=== PATIENT | female | born 1970 | race Caucasian/White ===

== ENCOUNTER 2017-01-08 18:17 | Emergency (ER) | payer OTHER ==
--- NOTE | ~2017-01-08 | CR72 ---
[facility] A Service of [facility] RADIOLOGY TEXT RESULTS PATIENT: MEENU GUPTA LOCATION: SED : 68 UNIT #: [id number] AGE: [address]: Brent Sheridan MD SEX: F ORDER DR: [id number] [place] [id number] MR#: [id number] Acc #: [id number] NAME: MEENU GUPTA : 1970 SEX: F STUDY DATE/TIME: 01/08/2017 18:13 UNIT: SED ROOM: STUDY DESCRIPTION: CR Chest Single View Portable Attending Physician: Alan Hannah M.D. Ordering Physician: Alan Hannah M.D. Primary Care Physician: Bridget Carty M.D. MEDICAL IMAGING REPORT This report is preliminary unless electronic signature is present. EXAM Portable chest. HISTORY Chest pain, hand tingling over the past week. COMPARISON 04/24/2011 TECHNIQUE Single view of the chest was obtained. FINDINGS A single AP portable view of the chest shows both lungs to be clear. The heart is normal in size. The mediastinal contour is normal. No significant bone abnormalities are seen. IMPRESSION Normal single view chest. Dictated by... Trey Reddy M.D. THIS IS AN ELECTRONICALLY VERIFIED REPORT Trey Reddy M.D. at 01/08/2017 10:20 PM RLF/vlad TD: 01/08/2017 19:01 JOB #: [id number] MEDICAL IMAGING REPORT [facility] A Service of [facility] RADIOLOGY TEXT RESULTS PATIENT: MEENU GUPTA LOCATION: SED : 68 UNIT #: [id number] AGE: [address]: Brent Sheridan MD SEX: F ORDER DR: Page 1 of 1
--- NOTE | ~2017-01-08 | EKG ---
PATIENT: MEENU GUPTA UNIT #: [id number] Ventricular Rate: 86 BPM Atrial Rate: 86 BPM P-R Interval: 112 ms QRS Duration: 84 ms Q-T Interval: 360 ms QTC Calculation(Bezet): 430 ms P [place]: 74 degrees Calculated R [place]: -5 degrees Calculated T [place]: 26 degrees Diagnosis Line: Normal sinus rhythm Diagnosis Line: Poor R wave progression questionable lead position Diagnosis Line: or body habitus Otherwise normal ECG Diagnosis Line: Diagnosis Line: Confirmed by JOI DAIGLE MD ([id number]) on 01/09/2017 Diagnosis Line: 2:48:39 PM INTERPRETING MD: PILO CURRY
[2017-01-08 18:17] LABS: BASOPHIL# 0.1 X10e3 (0-0.3); BASOPHIL% 0.9 % (0-2.5); EOSINOPHIL# 0.1 X10e3 (0-0.7); EOSINOPHIL% 1.9 % (0.0-7.0); HEMATOCRIT 42.4 % (35.0-45.0); HEMOGLOBIN 14.4 gm/dL (12.0-16.0); LYMPHOCYTE# 1.5 X10e3 (1.0-3.5); LYMPHOCYTE% 25.3 % (17.0-45.0); MEAN CORPUSCULAR HEMOGLOBIN 30.1 PG (28-34); MEAN CORPUSCULAR HGB CONC 33.9 g/dL (30-36); MONOCYTE# 0.4 X10e3 (0-1.0); MONOCYTE% 7.5 % (3.0-12.0); NEUTROPHIL# 3.8 X10e3 (1.5-7.1); NEUTROPHIL% 64.4 % (40-75); PLATELET COUNT 255 X10e3 (140-420); RED BLOOD COUNT 4.77 X10e (3.90-5.30); RED CELL DISTRIBUTION WIDTH 13.7 % (11.0-15.5)
[~2017-01-08 18:17] MED LIST: ADVAIR 2501 DISK W/D PO; ALBUTEROL17 GM INH; HYDROCODON-ACE1 EAC5 PO; NO HOME MEDS; NO MEDICATIONS; PHENERGAN PO; PHENERGAN PR
[2017-01-08 18:18] LABS: DIFF IND NO
[2017-01-08 18:23] LABS: PROTHROMBIN TIME (PATIENT) 11.6 SECONDS (9.5-12.4)
[2017-01-08 18:31] LABS: ALBUMIN SERUM 4.2 g/dL (3.5-5.0); BILIRUBIN, DIRECT 0.1 mg/dL (0.0-0.2); BILIRUBIN,INDIRECT 0.6 mg/dL (0.0-0.9); BILIRUBIN,TOTAL 0.7 mg/dL (0.2-2.0); BUN/CREATININE RATIO 14.28; CALCIUM SERUM 9.2 mg/dL (8.4-10.2); CREATININE SERUM 0.7 mg/dL (0.6-1.4); GLOM FILT RATE Estimated 103.2 mL/min (>60); PARTIAL THROMBOPLASTIN TIME 26.2 SECONDS (25.6-38.1); POTASSIUM 3.5 mmol/L (3.5-5.1); PROTEIN TOTAL SERUM 7.2 g/dL (6.0-8.3)
[2017-01-08 18:35] LABS: POC - CKMB <1.0 ng/mL (0.0-7.9); POC - TROPONIN <0.05 ng/mL (<=0.05)
[2017-01-08 19:37] LABS: POC - CKMB <1.0 ng/mL (0.0-7.9); POC - TROPONIN <0.05 ng/mL (<=0.05)
== END 2017-01-08 19:51 | disposition home or self-care (01) ==
LOC: SED 18:17
PROVIDERS: Emergency Medicine
DX: R07.9 Chest pain, unspecified (principal); J44.9 Chronic obstructive pulmonary disease, unspecified
CPT/HCPCS: 36415; 71010; 80048; 80076; 82553; 84484; 84703; 85025; 85610; 85730; 93005; 99284